=== PATIENT | female | born 1980 | race American Indian/Alaskan Native ===

== ENCOUNTER 2016-09-10 15:47 | Outpatient (CLI) | payer OTHER ==
--- NOTE | 2016-09-10 16:44 | XRay Report ---
RIGHT FOOT: The bony architecture is intact. Bony alignment is normal. No soft tissue abnormalities are seen. The joint spaces appear preserved. IMPRESSION: Normal right foot.
--- NOTE | 2016-09-10 16:44 | XRay Report ---
RIGHT ANKLE: The bones are well mineralized with normal bony contours and joint alignment. No fractures or destructive changes are noted and the adjacent soft tissues are normal. IMPRESSION: Normal study.
== END 2016-09-10 15:48 | disposition home or self-care (01) ==
LOC: XRAY 15:47
PROVIDERS: ATTEND Internal Medicine
DX: M25.571 Pain in right ankle and joints of right foot (principal); M79.671 Pain in right foot; M79.89 Other specified soft tissue disorders

== ENCOUNTER 2020-02-17 11:16 | Emergency (ER) | payer OTHER ==
[2020-02-17 11:53] VITALS: BP 126/59
--- NOTE | 2020-02-17 12:54 | Event Note ---
ED Screening Note Date of service: 02/17/20 Time: 12:54 ED Screening Note: Patient complains of a right-sided headache for the past 3 days She denies any history of migraines She does report some photophobia, but denies any nausea or vomiting Denies any significant past medical history This initial assessment/diagnostic orders/clinical plan/treatment(s) is/are subject to change based on patients health status, clinical progression and re- assessment by fellow clinical providers in the ED. Further treatment and workup at subsequent clinical providers discretion. Patient/guardian urged not to elope from the ED as their condition may be serious if not clinically assessed and managed. Initial orders include: labs
[2020-02-17 14:21] LABS: Hematocrit 39.8 % (30.3-42.9); Hemoglobin 13.3 gm/dl (10.1-14.3); Mean Corpuscular HGB Conc 34 % (30-34); Mean Corpuscular Volume 79 fl (79-97); Platelet Count 301 K/mm3 (140-440); Red Blood Count 5.07 M/mm3 (3.65-5.03); Red Cell Distribution Width 14.6 % (13.2-15.2)
[2020-02-17 14:51] LABS: Alanine Aminotransferase 18 units/L (7-56); Albumin 3.9 g/dL (3.9-5); BUN/Creatinine Ratio 11; Blood Urea Nitrogen 9 mg/dL (7-17); Calcium 9.3 mg/dL (8.4-10.2); Hemolysis Index 6
[2020-02-17 15:42] LABS: Basophils % (Manual) 0 % (0.0-1.8); Eosinophils % (Manual) 0 % (0.0-4.3); Platelet Estimate Consistent w Auto; RBC Morphology Normal; Total Cells Counted 100
[2020-02-17] MEDS ORDERED: SUMAtriptan SUCCINATE 25 MG TAB PO ONE (17:53)
[2020-02-17] MEDS ORDERED: METOCLOPRAMIDE 10 MG TAB PO ONE (17:53)
--- NOTE | 2020-02-17 18:26 | Emergency Department Report ---
ED Headache HPI - General Chief Complaint: Headache Stated Complaint: HEADACHE,RUNNY NOSE Time Seen by Provider: 02/17/20 12:51 - History of Present Illness Initial Comments: Patient is a 39-year-old female presents emergency room with complaints of a right temporal headache that began 3 days ago. She has associated photophobia and rhinorrhea. Patient states that she took ibuprofen with relief but then the headache returns. She denies any nausea, vomiting, diarrhea, fever, cough, neck stiffness, shortness of breath, chest pain, vision changes, numbness, weakness. She denies any past medical history. She denies any allergies to medications. She states her last menstrual cycle was 02/05/2020. Home Medications: Ambulatory Orders SUMAtriptan SUCCINATE [Imitrex] 25 mg PO Q3HR PRN #12 tab 02/17/20 ED Review of Systems ROS: Stated complaint: HEADACHE,RUNNY NOSE Other details as noted in HPI Comment: All other systems reviewed and negative ED Past Medical Hx - Past Medical History Previous Medical History?: No - Surgical History Past Surgical History?: Yes Hx Breast Surgery: Yes (Reduction) - Social History Smoking Status: Never Smoker Substance Use Type: None - Medications Home Medications: Home Medications Medication Instructions Recorded Confirmed Last Taken Type SUMAtriptan SUCCINATE [Imitrex] 25 mg PO Q3HR PRN #12 tab 02/17/20 Unknown Rx ED Physical Exam - General Limitations: No Limitations General appearance: alert, in no apparent distress - Head Head exam: Present: atraumatic, normocephalic - Eye Eye exam: Present: normal appearance, PERRL, EOMI. Absent: conjunctival injection, nystagmus, periorbital swelling, periorbital tenderness Pupils: Present: normal accommodation - ENT ENT exam: Present: mucous membranes moist, other (normal nasal turbinates, no sinus ttp bilaterally) - Neck Neck exam: Present: normal inspection, full ROM. Absent: meningismus - Respiratory Respiratory exam: Present: normal lung sounds bilaterally. Absent: respiratory distress, wheezes, rales, rhonchi, stridor, chest wall tenderness, accessory muscle use, decreased breath sounds, prolonged expiratory - Cardiovascular Cardiovascular Exam: Present: regular rate, normal rhythm, normal heart sounds. Absent: systolic murmur, diastolic murmur, rubs, gallop - Neurological Exam Neurological exam: Present: alert, oriented X3, CN II-XII intact, normal gait. Absent: motor sensory deficit - Psychiatric Psychiatric exam: Present: normal affect, normal mood - Skin Skin exam: Present: warm, dry, intact ED Course Vital Signs 02/17/20 11:52 Temperature 98.9 F Pulse Rate 70 Respiratory 20 Rate Blood Pressure 126/59 [Right] O2 Sat by Pulse 99 Oximetry ED Medical Decision Making - Lab Data Result diagrams: 02/17/20 14:08 02/17/20 14:08 Lab Results 02/17/20 02/17/20 Range/Units 14:08 14:08 WBC 4.0 L (4.5-11.0) K/mm3 RBC 5.07 H (3.65-5.03) M/mm3 Hgb 13.3 (10.1-14.3) gm/dl Hct 39.8 (30.3-42.9) % MCV 79 (79-97) fl MCH 26 L (28-32) pg MCHC 34 (30-34) % RDW 14.6 (13.2-15.2) % Plt Count 301 (140-440) K/mm3 Moore % (Auto) House Wrecker Add Manual Diff Complete Total Counted 100 Seg Neuts % (Manual) 57.0 (40.0-70.0) % Band Neutrophils % 0 % Lymphocytes % (Manual) 27.0 (13.4-35.0) % Reactive Lymphs % (Man) 0 % Monocytes % (Manual) 16.0 H (0.0-7.3) % Eosinophils % (Manual) 0 (0.0-4.3) % Basophils % (Manual) 0 (0.0-1.8) % Metamyelocytes % 0 % Myelocytes % 0 % Promyelocytes % 0 % Blast Cells % 0 % Nucleated RBC % Not Reportable Seg Neutrophils # Man 2.3 (1.8-7.7) K/mm3 Band Neutrophils # 0.0 K/mm3 Lymphocytes # (Manual) 1.1 L (1.2-5.4) K/mm3 Abs React Lymphs (Man) 0.0 K/mm3 Monocytes # (Manual) 0.6 (0.0-0.8) K/mm3 Eosinophils # (Manual) 0.0 (0.0-0.4) K/mm3 Basophils # (Manual) 0.0 (0.0-0.1) K/mm3 Metamyelocytes # 0.0 K/mm3 Myelocytes # 0.0 K/mm3 Promyelocytes # 0.0 K/mm3 Blast Cells # 0.0 K/mm3 WBC Morphology Not Reportable Hypersegmented Neuts Not Reportable Hyposegmented Neuts Not Reportable Hypogranular Neuts Not Reportable Smudge Cells Not Reportable Toxic Granulation Not Reportable Toxic Vacuolation Not Reportable Dohle Bodies Not Reportable Pelger-Huet Anomaly Not Reportable Denise Rods Not Reportable Platelet Estimate Consistent w auto Clumped Platelets Not Reportable Plt Clumps, EDTA Not Reportable Large Platelets Not Reportable Giant Platelets Not Reportable Platelet Satelliting Not Reportable Plt Morphology Comment Not Reportable RBC Morphology Normal Dimorphic RBCs Not Reportable Polychromasia Not Reportable Hypochromasia Not Reportable Poikilocytosis Not Reportable Anisocytosis Not Reportable Microcytosis Not Reportable Macrocytosis Not Reportable Spherocytes Not Reportable Pappenheimer Bodies Not Reportable Sickle Cells Not Reportable Target Cells Not Reportable Tear Drop Cells Not Reportable Ovalocytes Not Reportable Helmet Cells Not Reportable Baum-Kenesaw Bodies Not Reportable [place] Rings Not Reportable Philadelphia Cells Not Reportable Bite Cells Not Reportable Crenated Cell Not Reportable Elliptocytes Not Reportable Acanthocytes (Spur) Not Reportable Rouleaux Not Reportable Hemoglobin C Crystals Not Reportable Schistocytes Not Reportable Malaria parasites Not Reportable Jez Bodies Not Reportable Hem Pathologist Commnt No Sodium 138 (137-145) mmol/L Potassium 4.2 (3.6-5.0) mmol/L Chloride 102.6 (98-107) mmol/L Carbon Dioxide 24 (22-30) mmol/L Anion Gap 16 mmol/L BUN 9 (7-17) mg/dL Creatinine 0.8 (0.7-1.2) mg/dL Estimated GFR > 60 ml/min BUN/Creatinine Ratio 11 % Glucose 114 H (65-100) mg/dL Calcium 9.3 (8.4-10.2) mg/dL Total Bilirubin < 0.20 (0.1-1.2) mg/dL AST 22 (5-40) units/L ALT 18 (7-56) units/L Alkaline Phosphatase 73 (35-129) units/L Total Protein 6.9 (6.3-8.2) g/dL Albumin 3.9 (3.9-5) g/dL Albumin/Globulin Ratio 1.3 % - Medical Decision Making Patient is a 39-year-old female presents emergency room with complaints of a right temporal headache that began 3 days ago. She has associated photophobia and rhinorrhea. Patient states that she took ibuprofen with relief but then the headache returns. She denies any nausea, vomiting, diarrhea, fever, cough, neck stiffness, shortness of breath, chest pain, vision changes, numbness, weakness. She denies any past medical history. She denies any allergies to medications. She states her last menstrual cycle was 02/05/2020. Vitals are normal. Patient has no meningeal signs, no neurological deficits on exam. Labs ordered prior to my examination and are stable. Patient given Imitrex and Reglan and headache completely improved and patient was feeling better and ready to go home. Patient given prescription for Imitrex. Advised patient to please take medication as prescribed. Increase your water intake. Avoid caffeine us e. Follow-up with a primary care doctor in the next 2 to 3 days for reexamination. Return to emergency room immediately for any new or worsening symptoms. - Differential Diagnosis Migraine, cluster headache, tension headache, sinusitis Critical care attestation.: If time is entered above; I have spent that time in minutes in the direct care of this critically ill patient, excluding procedure time. ED Disposition Clinical Impression: Headache Qualifiers: Headache type: unspecified Headache chronicity pattern: acute headache Intractability: not intractable Qualified Code(s): R51 - Headache Disposition: DC-01 TO HOME OR SELFCARE Is pt being admited?: No Does the pt Need Aspirin: No Condition: Stable Instructions: Migraine Headache (ED) Additional Instructions: patient to please take medication as prescribed. Increase your water intake. Avoid caffeine use. Follow-up with a primary care doctor in the next 2 to 3 days for reexamination. Return to emergency room immediately for any new or worsening symptoms. Prescriptions: SUMAtriptan SUCCINATE [Imitrex] 25 mg PO Q3HR PRN #12 tab PRN Reason: headache Referrals: PRIMARY CARE, [Primary Care Provider] - 2-3 Days Print Language: LIBERIAN
== END 2020-02-17 21:01 | disposition home or self-care (01) ==
LOC: ED 11:16
DX: R51 Headache (principal); Z79.899 Other long term (current) drug therapy
CPT/HCPCS: 36415; 80053; 85007; 85025; 99283